=== PATIENT | male | born 1960 | race Asian ===

== ENCOUNTER 2021-09-06 06:44 | Outpatient (CLI) | payer BC ==
[~2021-09-06] VITALS: Ht 165 cm; Wt 61.4 kg
[2021-09-06] MEDS ORDERED: MTP25TSR PO (10:38)
== END 2021-09-06 12:29 | disposition home or self-care (01) ==
LOC: PREOP 06:44
PROVIDERS: ATTEND Internal Medicine
DX: Z01.818 Encounter for other preprocedural examination (principal)

== ENCOUNTER → 2021-09-14 | Day surgery (SDC) | payer BC ==
--- NOTE | 2021-09-07 08:34 | HISTORY AND PHYSICAL ---
DATE OF SERVICE: COLONOSCOPY HISTORY AND PHYSICAL HISTORY OF PRESENT ILLNESS: The patient is a 61-year-old white male seen for yearly wellness evaluation. I had last performed screening colonoscopy on him 12 years ago in 2009 that was unremarkable. He reports he has been feeling well. He is not aware of any family history for GI tract malignancy. He reports no bright red blood per rectum, melena or change in weight. He reports that he has felt well. He walks on a regular basis and has maintained a normal weight throughout his entire life with no past smoking or drinking history. FAMILY HISTORY: Updated. Father at age of 87 from complications of pulmonary fibrosis, thought to be related. Mother is still living at the age of 87 with no health problems. He has three brothers and one sister, all alive and well in their 60s and 70s. PHYSICAL EXAMINATION: GENERAL: Reveals a well-appearing male in no acute distress. VITAL SIGNS: Weight was down 1.6 pounds from his last office visit three years ago at 134, blood pressure 106/64. HEENT: Unremarkable. Sclerae nonicteric. Oral cavity reveals a Mallampati 1 oropharyngeal configuration. No exudate. CHEST: Clear to auscultation. CARDIOVASCULAR: Reveals a regular rate and rhythm without murmur, S3 or S4. ABDOMEN: Soft, supple without mass, organomegaly or tenderness. RECTAL: Deferred at the time of colonoscopy. EXTREMITIES: Reveal no cyanosis, clubbing or edema. SKIN: Evaluation revealed no suspicious nevi. ASSESSMENT AND PLAN: Stable wellness evaluation. The patient was sent for a screening PSA, lipid panel and basic metabolic panel. He is being set up for his second screening colonoscopy, deemed to be of average risk. Job ID: [id number] DocumentID: [id number] Dictated Date: 08/29/2021 16:41:32 Environmental Permitting Specialist Date: 08/29/2021 17:13:27 Dictated By: JOMAR TREJO MD
[~2021-09-14] VITALS: Ht 165 cm; Wt 61.4 kg
[~2021-09-14] MED LIST: LACTATED RINGERS 1,000 ML IV ONE; MIDAZOLAM 2 MG/2 ML (VERSED) VIAL ONE; MTP25TSR PO; PROPOFOL INJECTION 50 ML IV ONE
[2021-09-14 09:05] VITALS: BP 110/80
--- NOTE | 2021-09-14 09:12 | Pre-Op Note & Conscious Sedat ---
Pre-Operative Progress Note H&P Reviewed The H&P was reviewed, patient examined and no changes noted. Date H&P Reviewed: September 14, 2021 Time H&P Reviewed: 09:12 Conscious Sedation Pre-Proced ASA Score 1 For ASA 3 and 4: Consider anesthesia and medical clearance. Also, for patients with a history of failed moderate sedation consider anesthesia. Airway Lungs Heart ASA score ASA 1: a normal healthy patient ASA 2: a patient with a mild systemic disease (mid diabetes, controlled hypertension, obesity ASA 3: a patient with a severe systemic disease that limits activity (angina, COPD, prior Myocardial infarction) ASA 4: a patient with an incapacitating disease that is a constant threat to life (CHF, renal failure) ASA 5: a moribund patient not expected to survive 24 hrs. (ruptured aneurysm) ASA 6: a declared brain- patient whose organs are being harvested. For emergent operations, add the letter E after the classification Mallampati Classification Grade 2 Sedation Plan Analgesia, Amnesia, Plan communicated to team members, Discussed options with patient/fam, Discussed risks with patient/fam The patient is an appropriate candidate to undergo the planned procedure, sedation, and anesthesia. The patient immediately re-assessed prior to indication. JOMAR TREJO MD September 14, 2021 09:12
[2021-09-14 10:15] VITALS: BP 89/55
[2021-09-14 10:20] VITALS: BP 87/53
[2021-09-14 10:25] VITALS: BP 90/56
[2021-09-14 10:30] VITALS: BP 90/56
[2021-09-14 10:46] VITALS: BP 95/60
--- NOTE | 2021-09-14 13:10 | Anesthesia-General Post-Op ---
MAC Patient Condition Mental Status/LOC: Same as Preop Cardiovascular: Satisfactory Nausea/Vomiting: Absent Respiratory: Satisfactory Pain: Controlled Complications: Absent Post Op Complications Complications None Follow Up Care/Instructions Patient Instructions None needed. Anesthesiology Discharge Order Discharge Order Patient is doing well, no complaints, stable vital signs, no apparent adverse anesthesia problems. No complications reported per nursing. ERIN WARNER CRNA September 14, 2021 13:10
--- NOTE | 2021-09-14 16:38 | OPERATIVE REPORT ---
DATE OF SERVICE: COLONOSCOPY SUMMARY I am his primary care provider. INDICATION FOR THE PROCEDURE: Screening. DESCRIPTION OF PROCEDURE: The patient was placed in the left lateral decubitus position. Prior to doing colonoscopy, digital rectal evaluation was performed. Anal sphincter tone was normal. Perianal reflexes intact. There was no evidence for prostatic tissue to digital evaluation, which was otherwise unremarkable involving the anal canal and distal rectal vault. The colonoscope was then inserted into the rectum and under direct visualization advanced to cecum. The cecum was identified by identification of the ileocecal valve and cecal strap. Photographic documentation was obtained. Careful inspection was made as the colonoscope withdrawn. Quality of prep was good. FINDINGS: No evidence for internal or external hemorrhoids. The rectum and sigmoid colon were unremarkable. Present at the splenic flexure was diminutive 3 mm sessile polyp the best I could was to grasp tissue adjacent the polyp cauterized with evidence for cauterization under the entire polyp. For this reason, there was no tissue submission. There was no subsequent blood loss. The transverse colon was unremarkable. Two adjacent polyps were noted in the hepatic flexure smaller 2 mm polyp. Again, I was only able to grasp adjacent tissue and cauterize underneath the polyp with no blood loss. The larger 4 mm adenomatous appearing polyp was biopsied, ablated and submitted for histopathology. The ascending colon and cecum were unremarkable. ASSESSMENT: Three diminutive polyps were removed today. As long as there are no surprise on histopathology report and there continues to be no family history for colon cancer, we will advocate consideration for repeat surveillance colonoscopy and screening colonoscopy in 10 years. I was unable to palpate any evidence for prostatic tissue on digital rectal evaluation. Job ID: [id number] DocumentID: [id number] Dictated Date: 09/14/2021 10:18:58 Brick Siding Applicator Date: 09/14/2021 16:37:49 Dictated By: JOMAR TREJO MD
== END ==
LOC: ENDO 08:42
PROVIDERS: ATTEND Internal Medicine
DX: Z12.11 Encounter for screening for malignant neoplasm of colon (principal); D12.3 Benign neoplasm of transverse colon
CPT/HCPCS: 88305